=== PATIENT | male | born 1960 | race Caucasian/White ===

== ENCOUNTER → 2019-07-06 | Outpatient (CLI) | payer BC | END | disposition home or self-care (01) | LOC: LAB SHORT 08:28 → PLD 08:28 | DX: D22.5 Melanocytic nevi of trunk (principal) | CPT/HCPCS: 88305 ==

== ENCOUNTER 2022-05-11 09:59 | Day surgery (SDC) | payer BC ==
[~2022-05-11] VITALS: Ht 182.9 cm; Wt 74.8 kg
--- NOTE | 2022-05-11 11:18 | NUR ---
05/11/22 1118 Carla Billy FOUR ATTEMPTS AT IV. FIRST ATTMEPT AT IV BY MA IN RIGHT HAND MISSED. SECOND ATTEMPT AT IV BY MA IN RIGHT AC UNABLE TO ADVANCE. THIRD ATTEMPT AT IV BY MA IN LEFT HAND MISSED. FOURTH ATTEMPT AT IV BY MA IN LEFT AC SUCCESSFUL.
== END 2022-05-11 12:37 | disposition home or self-care (01) ==
LOC: ORSCSDS 09:59
PROVIDERS: Internal Medicine Gastroenterology
PROC: 0DBP8ZX Excision of Rectum, Via Natural or Artificial Opening Endoscopic, Diagnostic (ICD-10-PCS; principal; 2022-05-11 11:15)
PROC: 0DBK8ZX Excision of Ascending Colon, Via Natural or Artificial Opening Endoscopic, Diagnostic (ICD-10-PCS; principal; 2022-05-11 11:15)
DX: Z12.11 Encounter for screening for malignant neoplasm of colon (principal); D12.2 Benign neoplasm of ascending colon; D12.8 Benign neoplasm of rectum; K57.30 Diverticulosis of large intestine without perforation or abscess without bleeding; Z86.010 Personal history of colon polyps
CPT/HCPCS: 88305; J2704; J7120

== ENCOUNTER → 2025-02-09 | Outpatient (CLI) | payer BC | LOC: LAB 11:27 → LAB SHORT 11:27 | DX: L08.0 Pyoderma (principal) | CPT/HCPCS: 87070; 87205 ==